=== PATIENT | female | born 1955 | race Caucasian/White ===

== ENCOUNTER 2016-03-17 13:55 | Emergency (ER) | payer BC ==
[2016-03-17 14:15] VITALS: BP 133/87; PULSE 94; RESP 18; TEMP 98.1; O2SAT 99
[2016-03-17 14:43] LABS: BASOPHILS % (AUTO) 0 % (0-3); EOSINOPHILS % (AUTO) 2 % (0-9); HEMATOCRIT 41 % (35-47); MEAN CORPUSCULAR HGB CONC 35.1 gm/dl (32.0-36.0); MONOCYTES % (AUTO) 6.8 % (0-12); NEUTROPHILS % (AUTO) 75.7 % (37-80)
[2016-03-17 14:56] LABS: ALBUMIN 3.7 gm/dl (3.4-5.0); CALCIUM 9.2 mg/dl (8.5-10.1); POTASSIUM 3.9 mMol/L (3.5-5.1)
== END 2016-03-17 15:32 | disposition home or self-care (01) ==
LOC: ED 13:55
DX: J02.9 Acute pharyngitis, unspecified (principal); R05 Cough; M79.1 Myalgia; M25.50 Pain in unspecified joint
CPT/HCPCS: 36415; 71020; 80053; 85025; 87430; 99282

== ENCOUNTER 2016-11-04 08:00 | Outpatient (CLI) | payer BC ==
[2016-03-17 14:15] VITALS: O2SAT 99
== END 2016-11-04 08:01 | disposition home or self-care (01) ==
LOC: CONVCARE 08:00
PROVIDERS: ATTEND Orthopaedic Surgery
DX: M25.551 Pain in right hip (principal); M25.552 Pain in left hip

== ENCOUNTER 2017-02-24 11:00 | Outpatient (CLI) | payer BC ==
[2016-03-17 14:15] VITALS: O2SAT 99
== END 2017-02-24 11:01 | disposition home or self-care (01) ==
LOC: CONVCARE 11:00
PROVIDERS: ATTEND Orthopaedic Surgery
DX: M25.551 Pain in right hip (principal); M25.552 Pain in left hip

== ENCOUNTER 2017-06-16 11:00 | Outpatient (CLI) | payer BC ==
[2016-03-17 14:15] VITALS: O2SAT 99
== END 2017-06-16 11:01 | disposition home or self-care (01) ==
LOC: CONVCARE 11:00
PROVIDERS: ATTEND Orthopaedic Surgery
DX: M25.551 Pain in right hip (principal); M25.552 Pain in left hip

== ENCOUNTER 2017-10-20 05:30 | Inpatient (IN) | payer BC ==
[~2017-10-20 05:30] MED LIST: SODIUM CHLORIDE 0.9% FLUSH 10 ML SOL IV PRN
[2017-10-20] MEDS: SCOPOLAMINE 1.5MG PATCH TD SCH (05:53)
[2017-10-20] MEDS ORDERED: LACTATED RINGERS 1,000 ML IV ONE (06:30)
[2017-10-20] MEDS ORDERED: ONDANSETRON HCL 4 MG/2 ML SOL ONE (07:20)
[2017-10-20] MEDS ORDERED: DEXAMETHASONE 20 MG/5 ML (4 MG/ML SOL) ONE (07:20)
[2017-10-20] MEDS ORDERED: PROPOFOL 500 MG/50 ML EMU IV ONE ×2 (07:20→09:16)
[2017-10-20] MEDS ORDERED: METOCLOPRAMIDE HYDROCHLORIDE 5 MG/ML SOL ONE (07:20)
[2017-10-20] MEDS ORDERED: MORPHINE SULFATE 0.5 MG/ML SOL ONE (07:21)
[2017-10-20] MEDS ORDERED: MIDAZOLAM 2 MG/2 ML SOL ONE (07:21)
[2017-10-20] MEDS ORDERED: BUPIVACAINE LIPOSOME 20 ML SUS ONE (07:29)
[2017-10-20] MEDS ORDERED: LACTATED RINGERS 1,000 ML IV SCH (07:30)
[2017-10-20] MEDS ORDERED: SODIUM CHLORIDE 20 ML 20 ML ONE (07:30)
[2017-10-20] MEDS ORDERED: BUPIVACAINE HCL 0.5% MPF 10 ML SOL ONE (07:40)
[2017-10-20] MEDS ORDERED: CEFAZOLIN SODIUM 1 GM PDS ONE ×3 (08:43→23:09)
[2017-10-20] MEDS ORDERED: ALUMINUM/MAGNESIUM 30 ML SUS PO PRN (08:47)
[2017-10-20] MEDS ORDERED: BISACODYL 10 MG SUP PR PRN (08:47)
[2017-10-20] MEDS ORDERED: FLEET ENEMA PR PRN (08:47)
[2017-10-20] MEDS ORDERED: ONDANSETRON HCL 4 MG/2 ML SOL IV PRN (08:47)
[2017-10-20] MEDS ORDERED: ACETAMINOPHEN 325 MG PO PRN (08:47)
[2017-10-20] MEDS ORDERED: SODIUM CHLORIDE 0.9% 500 ML 500 ML IV PRN (08:47)
[2017-10-20] MEDS ORDERED: ONDANSETRON 4 MG ODT BU PRN (08:47)
[2017-10-20] MEDS ORDERED: DIAZEPAM 5 MG TAB PO PRN (08:47)
[2017-10-20] MEDS ORDERED: ZOLPIDEM TARTRATE 5 MG TAB PO PRN (08:47)
[2017-10-20] MEDS ORDERED: MAGNESIUM HYDROXIDE 30 ML SUS PO PRN (08:47)
[2017-10-20] MEDS: TRANEXAMIC ACID 100 MG/ML SOL ONE ×2 (09:00→10:10)
[2017-10-20] MEDS ORDERED: PHENYLEPHRINE HYDROCHLORIDE 10 MG/ML SOL ONE (09:43)
[2017-10-20] MEDS ORDERED: HYDROMORPHONE 1 MG/ML SYRINGE IV PRN (09:45)
[2017-10-20] MEDS ORDERED: VANCOMYCIN HYDROCHLORIDE 500 MG PDS IV ONE (10:03)
[2017-10-20] MEDS: DEXTROSE/SALINE 0.45/KCL 20MEQ 1,000 ML/1,000 ML SOL IV SCH (13:10)
[2017-10-20] MEDS ORDERED: CEFAZOLIN (PREMIX) 1 GM 1 GM/50 ML SOL IV SCH (14:47)
[2017-10-20] MEDS: GABAPENTIN 300 MG CAP PO SCH ×2 (15:17→21:42)
[2017-10-20] MEDS: SODIUM CHLORIDE 0.9% FLUSH 10 ML SOL IV SCH ×2 (15:18→17:16)
[2017-10-20] MEDS: RIVAROXABAN 10 MG TAB PO SCH (15:27)
[2017-10-20] MEDS: APAP/OXYCODONE 325/5 TAB PO PRN ×3 (17:09→23:59)
[2017-10-20] MEDS: SENNOSIDES A AND B 8.6 MG TAB PO SCH (20:47)
[2017-10-20] MEDS ORDERED: SODIUM CHLORIDE 0.9% 50 ML 50 ML IV ONE (23:09)
[2017-10-20] MEDS ORDERED: CEFAZOLIN SODIUM 1 GM PDS 1 GM in SODIUM CHLORIDE 0.9% 50 ML 50 ML IV ONE (23:25)
[2017-10-21] MEDS: DEXTROSE/SALINE 0.45/KCL 20MEQ 1,000 ML/1,000 ML SOL IV SCH ×2 (01:49→06:42)
[2017-10-21] MEDS: SODIUM CHLORIDE 0.9% FLUSH 10 ML SOL IV SCH ×3 (01:57→18:35)
[2017-10-21] MEDS: APAP/OXYCODONE 325/5 TAB PO PRN ×4 (05:38→20:09)
[2017-10-21 07:16] LABS: HEMOGLOBIN 11.4 gm/dl (12.0-15.5); MEAN CORPUSCULAR HEMOGLOBIN 28.5 pg (27.0-32.0); MEAN CORPUSCULAR HGB CONC 33.9 gm/dl (32.0-36.0)
[2017-10-21] MEDS: RIVAROXABAN 10 MG TAB PO SCH (09:45)
[2017-10-21] MEDS: GABAPENTIN 300 MG CAP PO SCH ×2 (10:36→20:08)
[2017-10-21] MEDS: SENNOSIDES A AND B 8.6 MG TAB PO SCH (20:09)
[2017-10-22] MEDS: SODIUM CHLORIDE 0.9% FLUSH 10 ML SOL IV SCH ×2 (00:01→11:31)
[2017-10-22] MEDS: APAP/OXYCODONE 325/5 TAB PO PRN ×4 (01:01→21:10)
[2017-10-22 07:05] LABS: HEMOGLOBIN 10.8 gm/dl (12.0-15.5); MEAN CORPUSCULAR HEMOGLOBIN 28.9 pg (27.0-32.0); MEAN CORPUSCULAR HGB CONC 34.1 gm/dl (32.0-36.0)
[2017-10-22] MEDS: RIVAROXABAN 10 MG TAB PO SCH (08:23)
[2017-10-22] MEDS: GABAPENTIN 300 MG CAP PO SCH ×2 (08:23→21:24)
[2017-10-22] MEDS: SENNOSIDES A AND B 8.6 MG TAB PO SCH (21:25)
[2017-10-23] MEDS: SCOPOLAMINE 1.5MG PATCH TD SCH (05:59)
[2017-10-23] MEDS: APAP/OXYCODONE 325/5 TAB PO PRN ×2 (06:00→13:34)
[2017-10-23 07:18] LABS: MEAN CORPUSCULAR HEMOGLOBIN 28.9 pg (27.0-32.0); MEAN CORPUSCULAR HGB CONC 34.3 gm/dl (32.0-36.0)
[2017-10-23 07:59] VITALS: BP 111/73; PULSE 83; RESP 18; TEMP 96.6; O2SAT 98
[2017-10-23] MEDS: RIVAROXABAN 10 MG TAB PO SCH (10:06)
[2017-10-23] MEDS: GABAPENTIN 300 MG CAP PO SCH (10:06)
== END 2017-10-23 15:00 | disposition home or self-care (01) | DRG 301 ==
LOC: ACUTE CARE 05:30
PROVIDERS: ADMIT Orthopaedic Surgery; ATTEND Orthopaedic Surgery
PROC: 0SRB0JA Replacement of Left Hip Joint with Synthetic Substitute, Uncemented, Open Approach (ICD-10-PCS; principal; 2017-10-20 08:00)
PROC: F01K5YZ Range of Motion and Joint Integrity Assessment of Musculoskeletal System - Upper Back / Upper Extremity using Other Equipment (ICD-10-PCS; 2017-10-21)
PROC: F02Z0ZZ Bathing/Showering Assessment (ICD-10-PCS; 2017-10-21)
PROC: F02Z2ZZ Feeding/Eating Assessment (ICD-10-PCS; 2017-10-21)
DX: M16.0 Bilateral primary osteoarthritis of hip (principal); Z96.642 Presence of left artificial hip joint
CPT/HCPCS: 36415; 73501; 73502; 85027; 85049; 94150; 99070; J0690; J1100; J2250; J2274; J2405; J2765; J3370; A4450; A6402; A9270-GY; J2370; J2704; J3490

== ENCOUNTER 2017-12-01 08:31 | Outpatient (CLI) | payer BC ==
[2017-10-23 07:59] VITALS: O2SAT 98
== END 2017-12-01 08:32 | disposition home or self-care (01) ==
LOC: CONVCARE 08:31
PROVIDERS: ATTEND Orthopaedic Surgery
DX: Z47.1 Aftercare following joint replacement surgery (principal); Z96.642 Presence of left artificial hip joint; M16.11 Unilateral primary osteoarthritis, right hip
CPT/HCPCS: 73501; 73502

== ENCOUNTER 2017-12-08 05:31 | Inpatient (IN) | payer BC ==
[2017-12-08] MEDS: SCOPOLAMINE 1.5MG PATCH TD SCH (05:55)
[2017-12-08] MEDS ORDERED: LACTATED RINGERS 1,000 ML IV ONE (06:00)
[2017-12-08] MEDS ORDERED: LACTATED RINGERS 1,000 ML IV SCH (07:00)
[2017-12-08] MEDS ORDERED: BUPIVACAINE LIPOSOME 20 ML SUS ONE (07:16)
[2017-12-08] MEDS ORDERED: SODIUM CHLORIDE 20 ML 20 ML ONE (07:16)
[2017-12-08] MEDS ORDERED: BUPIVACAINE HCL 0.25% MPF 30 ML SOL INFIL ONE (07:16)
[2017-12-08] MEDS ORDERED: DEXAMETHASONE 20 MG/5 ML (4 MG/ML SOL) ONE (07:46)
[2017-12-08] MEDS ORDERED: ONDANSETRON HCL 4 MG/2 ML SOL ONE (07:46)
[2017-12-08] MEDS ORDERED: PROPOFOL 500 MG/50 ML EMU IV ONE ×2 (07:46→09:26)
[2017-12-08] MEDS ORDERED: MIDAZOLAM 2 MG/2 ML SOL ONE (07:46)
[2017-12-08] MEDS ORDERED: MORPHINE SULFATE 0.5 MG/ML SOL ONE (07:46)
[2017-12-08] MEDS ORDERED: CEFAZOLIN SODIUM 1 GM PDS ONE ×3 (07:55→17:14)
[2017-12-08] MEDS ORDERED: TRANEXAMIC ACID 100 MG/ML SOL ONE ×2 (07:55→09:43)
[2017-12-08] MEDS ORDERED: PHENYLEPHRINE HYDROCHLORIDE 10 MG/ML SOL ONE (08:51)
[2017-12-08] MEDS ORDERED: VANCOMYCIN HYDROCHLORIDE 500 MG PDS IV ONE (09:00)
[2017-12-08] MEDS ORDERED: MAGNESIUM HYDROXIDE 30 ML SUS PO PRN (10:24)
[2017-12-08] MEDS ORDERED: ACETAMINOPHEN 325 MG PO PRN (10:24)
[2017-12-08] MEDS ORDERED: ZOLPIDEM TARTRATE 5 MG TAB PO PRN (10:24)
[2017-12-08] MEDS ORDERED: ONDANSETRON 4 MG ODT BU PRN (10:24)
[2017-12-08] MEDS ORDERED: FLEET ENEMA PR PRN (10:24)
[2017-12-08] MEDS ORDERED: SODIUM CHLORIDE 0.9% 500 ML 500 ML IV PRN (10:24)
[2017-12-08] MEDS ORDERED: ALUMINUM/MAGNESIUM 30 ML SUS PO PRN (10:24)
[2017-12-08] MEDS ORDERED: ONDANSETRON HCL 4 MG/2 ML SOL IV PRN (10:24)
[2017-12-08] MEDS ORDERED: BISACODYL 10 MG SUP PR PRN (10:24)
[2017-12-08] MEDS ORDERED: DIAZEPAM 5 MG TAB PO PRN (10:24)
[2017-12-08] MEDS ORDERED: BUPIVACAINE HCL 0.5% MPF 10 ML SOL ONE (10:37)
[2017-12-08] MEDS ORDERED: HYDROMORPHONE 1 MG/ML SYRINGE IV PRN (14:30)
[2017-12-08] MEDS ORDERED: IMPRIMIS ONE (14:53)
[2017-12-08] MEDS: SODIUM CHLORIDE 0.9% FLUSH 10 ML SOL IV SCH ×2 (15:22→18:32)
[2017-12-08] MEDS: DEXTROSE/SALINE 0.45/KCL 20MEQ 1,000 ML/1,000 ML SOL IV SCH ×2 (15:22→20:58)
[2017-12-08] MEDS ORDERED: SODIUM CHLORIDE 0.9% 50 ML 50 ML IV ONE (17:14)
[2017-12-08] MEDS: CEFAZOLIN SODIUM 1 GM PDS 1 GM in SODIUM CHLORIDE 0.9% 50 ML 50 ML IV SCH (17:24)
[2017-12-08] MEDS: APAP/OXYCODONE 325/5 TAB PO PRN ×2 (18:32→21:02)
[2017-12-08] MEDS: POLYETHYLENE GLYCOL 17 GM/1 TBS PDS PO PRN (18:33)
[2017-12-08] MEDS: GABAPENTIN 300 MG CAP PO SCH (21:02)
[2017-12-08] MEDS: SENNOSIDES A AND B 8.6 MG TAB PO SCH (21:02)
[2017-12-09] MEDS ORDERED: CEFAZOLIN SODIUM 1 GM PDS ONE (01:08)
[2017-12-09] MEDS ORDERED: SODIUM CHLORIDE 0.9% 50 ML 50 ML IV ONE (01:08)
[2017-12-09] MEDS: CEFAZOLIN SODIUM 1 GM PDS 1 GM in SODIUM CHLORIDE 0.9% 50 ML 50 ML IV SCH (01:15)
[2017-12-09] MEDS: DEXTROSE/SALINE 0.45/KCL 20MEQ 1,000 ML/1,000 ML SOL IV SCH ×2 (02:25→12:16)
[2017-12-09] MEDS: SODIUM CHLORIDE 0.9% FLUSH 10 ML SOL IV SCH ×3 (02:28→18:29)
[2017-12-09] MEDS: APAP/OXYCODONE 325/5 TAB PO PRN ×5 (05:21→23:59)
[2017-12-09 07:08] LABS: HEMOGLOBIN 9.9 gm/dl (12.0-15.5); MEAN CORPUSCULAR HEMOGLOBIN 28.3 pg (27.0-32.0); MEAN CORPUSCULAR HGB CONC 32.9 gm/dl (32.0-36.0)
[2017-12-09] MEDS: RIVAROXABAN 10 MG TAB PO SCH (08:39)
[2017-12-09] MEDS: GABAPENTIN 300 MG CAP PO SCH ×2 (08:39→20:05)
[2017-12-09] MEDS: FERROUS GLUCONATE 324 MG TABLET PO SCH ×2 (09:46→20:05)
[2017-12-09] MEDS ORDERED: SODIUM CHLORIDE 0.9% 500 ML 500 ML IV ONE (09:54)
[2017-12-09] MEDS ORDERED: SODIUM CHLORIDE 0.9% 1000ML 1,000 ML IV ONE (10:01)
[2017-12-09 10:06] LABS: BASOPHILS % (AUTO) 0 % (0-3); EOSINOPHILS % (AUTO) 0 % (0-9); HEMATOCRIT 29 % (35-47); HEMOGLOBIN 9.7 gm/dl (12.0-15.5); LYMPHOCYTES % (AUTO) 27.8 % (10-50); MEAN CORPUSCULAR HEMOGLOBIN 28.4 pg (27.0-32.0); MEAN CORPUSCULAR HGB CONC 32.9 gm/dl (32.0-36.0); MEAN CORPUSCULAR VOLUME 86 fL (81-99); NEUTROPHILS % (AUTO) 60.2 % (37-80)
[2017-12-09 10:23] LABS: BLOOD UREA NITROGEN 7 mg/dl (7-18); CALCIUM 8.1 mg/dl (8.5-10.1); CHLORIDE 102 mMol/L (98-107); CREATININE 0.68 mg/dl (0.60-1.00); GLUCOSE 85 mg/dl (74-106); POTASSIUM 3.3 mMol/L (3.5-5.1); SODIUM 134 mMol/L (136-145); TROP I < 0.017 ng/ml (0.000-0.056)
[2017-12-09 10:30] LABS: CARBON DIOXIDE 28.3 mEq/L (21-32)
[2017-12-09] MEDS ORDERED: CALCIUM GLUCONATE 10% 1,000 MG in SODIUM CHLORIDE 0.9% 100 ML 100 ML IV ONE (10:46)
[2017-12-09] MEDS ORDERED: SODIUM CHLORIDE 0.9% 100 ML 100 ML IV ONE (11:21)
[2017-12-09] MEDS ORDERED: CALCIUM GLUCONATE 10% 100 MG/ML SOL IV ONE (11:21)
[2017-12-09] MEDS: POTASSIUM CHLORIDE 10 MEQ TER PO SCH ×2 (11:32→17:34)
[2017-12-09] MEDS: POLYETHYLENE GLYCOL 17 GM/1 TBS PDS PO PRN (17:38)
[2017-12-09] MEDS: SODIUM CHLORIDE 0.9% 1000ML 1,000 ML IV SCH (18:10)
[2017-12-09] MEDS: SENNOSIDES A AND B 8.6 MG TAB PO SCH (20:05)
[2017-12-10] MEDS: SODIUM CHLORIDE 0.9% FLUSH 10 ML SOL IV SCH ×3 (04:13→18:11)
[2017-12-10] MEDS: SODIUM CHLORIDE 0.9% 1000ML 1,000 ML IV SCH (04:15)
[2017-12-10 07:03] LABS: HEMOGLOBIN 9.6 gm/dl (12.0-15.5); MEAN CORPUSCULAR HEMOGLOBIN 28.6 pg (27.0-32.0)
[2017-12-10 07:31] LABS: CARBON DIOXIDE 28.8 mEq/L (21-32); CREATININE 0.68 mg/dl (0.60-1.00); POTASSIUM 4.2 mMol/L (3.5-5.1)
[2017-12-10] MEDS: GABAPENTIN 300 MG CAP PO SCH ×2 (08:30→21:00)
[2017-12-10] MEDS: FERROUS GLUCONATE 324 MG TABLET PO SCH ×2 (08:30→21:00)
[2017-12-10] MEDS: RIVAROXABAN 10 MG TAB PO SCH (08:30)
[2017-12-10] MEDS: APAP/OXYCODONE 325/5 TAB PO PRN ×3 (08:35→21:00)
[2017-12-10] MEDS: SENNOSIDES A AND B 8.6 MG TAB PO SCH (21:00)
[2017-12-11] MEDS: APAP/OXYCODONE 325/5 TAB PO PRN (06:06)
[2017-12-11] MEDS: SCOPOLAMINE 1.5MG PATCH TD SCH (06:07)
[2017-12-11] MEDS: SODIUM CHLORIDE 0.9% FLUSH 10 ML SOL IV SCH ×2 (06:13→10:31)
[2017-12-11 07:21] LABS: HEMOGLOBIN 9.8 gm/dl (12.0-15.5); MEAN CORPUSCULAR HEMOGLOBIN 27.9 pg (27.0-32.0)
[2017-12-11 07:32] LABS: CALCIUM 8.5 mg/dl (8.5-10.1); CREATININE 0.65 mg/dl (0.60-1.00); POTASSIUM 3.8 mMol/L (3.5-5.1)
[2017-12-11] MEDS: RIVAROXABAN 10 MG TAB PO SCH (09:10)
[2017-12-11] MEDS: GABAPENTIN 300 MG CAP PO SCH (09:10)
[2017-12-11] MEDS: FERROUS GLUCONATE 324 MG TABLET PO SCH (09:10)
[2017-12-11 09:11] VITALS: BP 105/66; PULSE 79; RESP 14; TEMP 98.1; O2SAT 98
== END 2017-12-11 10:20 | disposition home or self-care (01) | DRG 301 ==
LOC: ACUTE CARE 05:31
PROVIDERS: ADMIT Orthopaedic Surgery; ATTEND Orthopaedic Surgery
PROC: F01L5YZ Range of Motion and Joint Integrity Assessment of Musculoskeletal System - Lower Back / Lower Extremity using Other Equipment (ICD-10-PCS; 2017-12-08)
PROC: F01H1ZZ Integumentary Integrity Assessment of Integumentary System - Whole Body (ICD-10-PCS; 2017-12-08)
PROC: 0SR90JA Replacement of Right Hip Joint with Synthetic Substitute, Uncemented, Open Approach (ICD-10-PCS; principal; 2017-12-08 08:00)
PROC: F02Z3ZZ Grooming/Personal Hygiene Assessment (ICD-10-PCS; 2017-12-09)
DX: M16.11 Unilateral primary osteoarthritis, right hip (principal); Z96.641 Presence of right artificial hip joint; M16.12 Unilateral primary osteoarthritis, left hip
CPT/HCPCS: 36415; 73501; 73502; 80048; 84484; 85025; 85027; 85049; 93005; 94150; 99070; J0610; J0690; J1100; J2250; J2274; J2405; J3370; A4450; A6219; A6232; A6402; A9270-GY; J2370; J2704; J3490

== ENCOUNTER 2017-12-22 12:46 | Outpatient (CLI) | payer BC ==
[2017-12-11 09:11] VITALS: O2SAT 98
== END 2017-12-22 12:47 | disposition home or self-care (01) ==
LOC: CONVCARE 12:46
PROVIDERS: ATTEND Orthopaedic Surgery
DX: Z96.641 Presence of right artificial hip joint (principal)
CPT/HCPCS: 73502